=== PATIENT | male | born 1980 | race Caucasian/White ===

== ENCOUNTER 2022-07-01 09:25 | Emergency (ER) | payer BC ==
[~2022-07-01 09:25] MED LIST: BACTROBAN OINT22 GM EXT; EXPECTORANT200 MG PO; FLOMAX 0.4 MG0.4 MG PO; FLONASE 0.05% N16 GM; HYDROCODON-ACE1 EAC2 PO; PREDNISONE 50 M50 MG PO; ZITHROMAX250 MG PO
[2022-07-01] MEDS ORDERED: IBUPROFEN800 MG PO (10:32)
== END 2022-07-01 11:00 | disposition home or self-care (01) ==
LOC: ER1 09:25
DX: M25.511 Pain in right shoulder (principal); F17.200 Nicotine dependence, unspecified, uncomplicated
CPT/HCPCS: 73030; 99283

== ENCOUNTER 2022-08-04 07:53 | Emergency (ER) | payer BC ==
[~2022-08-04 07:53] MED LIST changes: +IBUPROFEN800 MG PO
[2022-08-04] MEDS ORDERED: IBU800 MG PO (08:33)
[2022-08-04] MEDS ORDERED: CYCLOBENZAPRINE10 MG PO (08:33)
== END 2022-08-04 08:51 | disposition home or self-care (01) ==
LOC: ER1 07:53
DX: S39.012A Strain of muscle, fascia and tendon of lower back, initial encounter (principal); X50.9XXA Other and unspecified overexertion or strenuous movements or postures, initial encounter
CPT/HCPCS: 96372; 99283; J1885